=== PATIENT | male | born 1985 | race Caucasian/White ===

== ENCOUNTER 2020-08-12 14:14 | Inpatient (IN) ==
[2020-08-12] MEDS ORDERED: DILAUDID INJ IVP PRN (16:23)
[2020-08-12 17:25] VITALS: BMI 33.4
[2020-08-12] MEDS: ZOSYN VIAL 3.375 GRAMS 3.375 G in NS 100 ML IV + SPIKE MINIBAG* 100 ML IV SCH (18:49)
[2020-08-12] MEDS: D5 1/2 NS 1000 ML 1,000 ML IV SCH (18:49)
--- NOTE | 2020-08-12 19:07 | RAD ---
Abdomen radiograph single viewIndication: Umbilical herniaCOMPARISONMarch 2020 radiographFINDINGSThere is no free air or pneumatosis. No dilated loop of bowel is identified. Contrast is seen in the colon.IMPRESSIONNo high-grade obstruction, free air or pneumatosis seen.Electronically signed by: TIMBO RIZO (Aug 12, 2020 19:06:04)
--- NOTE | 2020-08-12 19:08 | RAD ---
Chest AP portableIndication: Hernia. Preoperative clearance.FINDINGSThere is no pneumothorax, effusion or dense consolidation. Heart size is normalIMPRESSIONNo acute chest process.Electronically signed by: TIMBO RIZO (Aug 12, 2020 19:06:21)
[2020-08-13] MEDS: ZOSYN VIAL 3.375 GRAMS 3.375 G in NS 100 ML IV + SPIKE MINIBAG* 100 ML IV SCH ×3 (00:06→13:59)
[2020-08-13] MEDS: D5 1/2 NS 1000 ML 1,000 ML IV SCH ×3 (00:14→09:42)
[2020-08-13 06:16] LABS: BASOPHILS # (AUTO) 0.1 X10^3/uL (0.0-0.1); BASOPHILS % (AUTO) 0.8 % (0.2-1.0); EOSINOPHILS # (AUTO) 0.2 x10^3/uL (0.0-0.2); EOSINOPHILS % (AUTO) 2.2 % (0.9-2.9); HEMATOCRIT 46.7 % (42.0-54.0); HEMOGLOBIN 15.7 g/dL (13.5-18.0); LYMPHOCYTES # (AUTO) 3.2 X10^3/uL (1.3-2.9); LYMPHOCYTES % (AUTO) 38.7 % (21.0-51.0); MEAN CORPUSCULAR HEMOGLOBIN 28.5 pg (27.0-34.0); MEAN CORPUSCULAR HGB CONC 33.6 g/dL (33.0-35.0); MEAN CORPUSCULAR VOLUME 84.7 fL (80.0-100.0); MEAN PLATELET VOLUME 7.6 fL (7.4-11.0); MONOCYTES # (AUTO) 0.9 x10^3/uL (0.3-0.8); MONOCYTES % (AUTO) 10.3 % (0.0-13.0); PLATELET COUNT 255 X10^3/uL (150.0-450.0); RED BLOOD COUNT 5.52 X10^6/uL (4.7-6.0); RED CELL DISTRIBUTION WIDTH 13.3 % (11.6-16.5); WHITE BLOOD COUNT 8.3 X10^3/uL (3.6-10.0)
[2020-08-13 06:34] LABS: ALANINE AMINOTRANSFERASE 29 Units/L (12-78); ALBUMIN 3.5 g/dL (3.4-5.0); ALKALINE PHOSPHATASE 67 Units/L (46-116); ASPARTATE AMINO TRANSFERASE 13 Units/L (15-37); BLOOD UREA NITROGEN 13 mg/dL (7-18); CALCIUM 8.4 mg/dL (8.5-10.1); CARBON DIOXIDE 29.1 mmol/L (21-32); CHLORIDE 105 mmol/L (98-107); COR NA(FOR HYPERGLY) 139 mmol/L (136-145); CREATININE 1.26 mg/dL (0.70-1.30); SODIUM 139 mmol/L (136-145); TOTAL PROTEIN 6.7 g/dL (6.4-8.2); eGFR NON BLACK RACES > 60 (>60)
[2020-08-13] MEDS ORDERED: DIPRIVAN VIAL ONE (08:30)
[2020-08-13] MEDS ORDERED: VERSED ONE (08:30)
[2020-08-13] MEDS ORDERED: ANCEF VIAL 1 GRAM IVP ONE (08:30)
[2020-08-13] MEDS ORDERED: DECADRON INJ ONE (08:30)
[2020-08-13] MEDS ORDERED: TORADOL 30 MG VIAL ONE (08:30)
[2020-08-13] MEDS ORDERED: XYLOCAINE 2 % (PLAIN) ONE (08:30)
[2020-08-13] MEDS ORDERED: REGLAN INJ 10 MG VIAL ONE (08:30)
[2020-08-13] MEDS ORDERED: SUPRANE ONE (08:30)
[2020-08-13] MEDS ORDERED: LTA KIT LIDOCAINE 4% ONE (08:30)
[2020-08-13] MEDS ORDERED: ZOFRAN INJ 4 MG VIAL ONE (08:30)
[2020-08-13] MEDS ORDERED: BENADRYL INJ 50 MG VIAL IVP PRN (10:00)
[2020-08-13] MEDS ORDERED: ZOFRAN INJ 4 MG VIAL IVP PRN (10:00)
[2020-08-13] MEDS ORDERED: LR 1000 ML IV 1,000 ML IV SCH (10:00)
[2020-08-13] MEDS ORDERED: PHENERGAN INJ 25 MG IM PRN (10:00)
[2020-08-13] MEDS ORDERED: REGLAN INJ 10 MG VIAL IVP PRN (10:00)
[2020-08-13] MEDS ORDERED: DILAUDID INJ IVP PRN (10:00)
[2020-08-13] MEDS: DILAUDID INJ IVP PRN ×2 (10:41→13:59)
[2020-08-13] MEDS ORDERED: D5 1/2 NS 1000 ML 1,000 ML IV SCH (11:00)
[2020-08-13 16:25] VITALS: BP 125/72
== END 2020-08-13 16:40 | disposition home or self-care (01) | DRG 355 ==
LOC: MED/SURG 15:25
PROVIDERS: ADMIT Surgery; ATTEND Surgery
DX: K42.0 Umbilical hernia with obstruction, without gangrene; Z20.822 Contact with and (suspected) exposure to COVID-19